=== PATIENT | male | born 1950 | race Caucasian/White ===

== ENCOUNTER 2016-10-07 12:00 | Day surgery (SDC) | payer OTHER ==
[~2016-10-07] VITALS: Ht 177.8 cm; Wt 126.0 kg
[~2016-10-07 12:00] MED LIST: AMLO5TAB2 PO; ASPI-973 PO; CETI10CA PO; CLOP75TA28 PO; DIPH25CA6 PO; LIP40 PO; LISI-571 PO; LORA10CA9 PO; Lactated Ringer's 1,000 ML IV ONE; METF500T4 PO; MULT-1018 PO; NAPR220C11 PO; NITR0.4T6 SL; OMEG1CAP25 PO; OMEP20TA24 PO; OXYC1TAB24 PO; POTA5TAB2 PO; TAMS0.4C98 PO; TIOP100T PO
[2016-10-07] MEDS ORDERED: fentaNYL-PF 50 mCg/mL 2 mL Inj ONE (12:01)
[2016-10-07] MEDS ORDERED: Propofol 10,000 mCg/mL 20 mL Inj ONE (12:01)
[2016-10-07 12:41] VITALS: BP 117/61; PULSE 69; RESP 16; O2SAT 95
[2016-10-07] MEDS ORDERED: MetoCLOpramide 5 mg/mL 2 mL Inj IVPUSH PRN (13:20)
[2016-10-07] MEDS ORDERED: Ondansetron 2 mg/mL 2 mL Inj IVPUSH PRN (13:20)
[2016-10-07] MEDS ORDERED: Lactated Ringer's 1,000 ML IV SCH (13:20)
--- NOTE | 2016-10-07 13:20 | PCM.HPANE ---
Patient Data Surgeon Admitting Provider: Attending Provider:Keenan Martin MD Primary Care Physician:Tod William MD Other Provider:[facility] Reason for Visit Hx Of Adenomatous Polyp Of Colon Ht/WT & BMI Height (Feet): 5 Height (Inches): 10 Weight (Kilograms): 126 Body Mass Index 39.00 Allergies Coded Allergies: Sulfa (Sulfonamide Antibiotics) (Verified Allergy, Severe, 10/03/16) meperidine (Verified Allergy, Severe, itch, n/v, 10/03/16) tetanus toxoid, adsorbed (Verified Allergy, Severe, 10/03/16) ketorolac (Verified Adverse Reaction, Severe, PARANOIA, 10/03/16) Becomes Paranoid Beta-Blockers (Beta-Adrenergic Bloc (Verified Adverse Reaction, Intermediate, DEPRESSION/FATIGUE, 10/03/16) simvastatin (Verified Adverse Reaction, Intermediate, MEMORY LOSS, LETHARGY, 10/03/16) Past Anesthesia History Anesthesia History: Denies:: Abnormal Airway, Anesthesia Reactions, Difficult Intubation, Fam Anesthesia Reaction, Fam Malignant Hypertherm, Malignant Hyperthermia Diabetes History Hx Diabetes?: Yes Type of Diabetes: Type II Glycemic Control: Oral Medication Current Bedside Blood Glucose: 121 MRSA MRSA: No Medications Blood Thinner: Aspirin, Plavix Last Dose Blood Thinner: Sep 30, 2016 Home Meds Incl Beta Donte: No Reported Medications Cetirizine HCl (Zyrtec)10 Mg Rcwgsui52 Mg PO HS #30 CAPSULE Ref 0 10/03/16 Tiopronin (Thiola)100 Mg Vwdfvm042 Mg PO TID 10/03/16 Omeprazole Magnesium (Prilosec Otc)20 Mg Tablet.dr20 Mg PO DAILY #1 PKG Ref 0 10/03/16 Potassium Citrate ER 5 Meq Tablet2 Tablet PO TID Ref 0 TAKE WITH FOOD 10/03/16 oxyCODONE-Acetaminophen 5-325 mg 1 Each Tablet1 Tab PO Q6H PRN For Pain Ref 0 10/03/16 Riparius-3 Fatty Acids/Fish Oil (Riparius 3 Fish Oil Softgel)1 Each Capsule.dr1 Each PO DAILY 10/03/16 Nitroglycerin SL 0.4 Mg Tab.subl0.4 Mg SL 10/03/16 Multivitamin (Multi Vitamin Daily)1 Each Tablet1 Each PO DAILY 30 Days Ref 0 10/03/16 Metformin 500 Mg Tablet1,000 Mg PO BID Ref 0 10/03/16 Loratadine 10 Mg Jummsgn97 Mg PO DAILY 10/03/16 Lisinopril 5 Mg Tablet5 Mg PO DAILY #30 TABLET Ref 0 10/03/16 Tamsulosin (Flomax)0.4 Mg Capsule0.4 Mg PO DAILY Ref 0 10/03/16 Clopidogrel 75 Mg Uenczw66 Mg PO DAILY Ref 0 10/03/16 diphenhydrAMINE HCl (Benadryl)25 Mg Vvnpcth66 Mg PO Q4 PRN For Itching Ref 0 10/03/16 Atorvastatin (Lipitor)40 Mg Wkaiuz30 Mg PO DAILY Ref 0 10/03/16 Aspirin 81 Mg Trtgcs83 Mg PO DAILY Ref 0 10/03/16 Amlodipine 5 Mg Tablet5 Mg PO DAILY Ref 0 10/03/16 Naproxen Sodium (Aleve)220 Mg Elyxdva340 Mg PO BID 10/03/16 Discontinued Reported Medications Tamsulosin (Flomax)0.4 Mg Capsule0.4 Mg PO HS Ref 0 10/19/15 Metformin 500 Mg Tablet1,000 Mg PO BID Ref 0 10/19/15 Famotidine (Pepcid)20 Mg Jaxsyz55 Mg PO DAILY PRN For Dyspepsia or Heartburn 04/10/15 Atorvastatin Calcium 40 Mg Bjqprf75 Mg PO DAILY Ref 0 04/10/15 Amlodipine 5 Mg Tablet5 Mg PO DAILY Ref 0 04/10/15 Cholecalciferol (Vitamin D3) (Vitamin D3)3,000 Unit Tablet4,000 Unit PO DAILY 06/08/14 Aspirin (Aspir 81)81 Mg Tablet.dr81 Mg PO DAILY Ref 0 06/08/14 [vitaminB 12] No Conflict Check1 Tab SL DAILY 06/08/14 Phenazopyridine HCl (Azo-Tabs)95 Mg Bvnyac64 Mg PO PRN For Pain 06/08/14 Nitroglycerin SL (Nitrostat)0.4 Mg Tab.subl0.4 Mg SL Q5MIN PRN For Chest Pain # 1 BOTTLE 06/08/14 Multivitamin (Multi Vitamin Daily)1 Each Tablet1 Each PO DAILY 30 Days Ref 0 06/08/14 Discontinued Scripts oxyCODONE-Acetaminophen 5-325 mg 1 Each Tablet1 Tab PO Q6H PRN For Pain #20 TABLET Prov:Rukhsana Londono MD 10/18/15 Ondansetron ODT (Zofran ODT)8 Mg Tablet8 Mg PO Q6H PRN For Nausea #30 TABLET Prov:Rukhsana Londono MD 10/18/15 Clopidogrel Bisulfate (Plavix)75 Mg Yuwxff56 Mg PO DAILY 30 Days Ref 0 Prov:Brennan Elam MD 04/13/15 History History of ENT Problems?: Yes HEENT History: Positive for:: 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) Sinus Problem (SINUS DRAINAGE) Denies:: Abnormal Airway Cataracts Difficult Intubation Dysphagia Denture Type: None Teeth Condition: Within Normal Limits Hx of Heart Problems?: Yes Cardiovascular History: Positive for:: Cardiac Surgery (CABGx2 2001, 2006, multiple stents placed) Chest Pain Edema Hypertension Irregular Heartbeat (Palpitations occasionally) Denies:: AICD Atrial Fibrillation Heart Murmur Pacemaker Thrombophlebitis Valvular Heart Disease Hx of Respiratory Problem?: Yes Respiratory History: Positive for:: Dyspnea (RT cardiac, with activity) Use of C-PAP Machine Denies:: Asthma COPD Chest Surgery Emphysema Hemoptysis Oxygen Administration Pneumonia Tuberculosis Hx Neurologic Problems?: No Neurological History: Denies:: Alzheimer's Disease CVA Dementia Dizziness Headaches Parkinson's Disease Seizures Hx of GI Problems?: Yes Hx of Problems?: Yes Genitourinary History: Positive for:: Kidney Stones (frequent stones) Urinary Tract Infection Denies:: HX of Hemodialysis HX of Peritoneal Dialysis: No Male Hx: Positive for:: Prostate Problems (BPH a little bite) Denies:: Scrotal Mass Testicular Surgery Skin History: Denies:: History Skin Disorders? Pressure Ulcers Hx Musculoskeletal Problems?: Yes Musculoskeletal History: Positive for:: Back Injury (sometimes) Denies:: Fibromyalgia Joint Replacement Musculoskeletal Trauma Hx of Psycho/Social Problems?: No Psycho Social History: Denies:: Anxiety Bipolar Disorder Hx Depression Suicide Attempt Hx Surgeries?: Yes (Kindey stone removal several times, CABG and stents) Hx Any Other Health Problems?: Yes Other History: Positive for:: Endocrine Disease Hospitalization Denies:: Cancer Thyroid Disease History Blood Transfusions: Denies:: Blood Transfuse Reaction Blood Transfusions Hx Diabetes: YesBedside Blood Glucose: 121 Hx Alcohol Use: NoHx Substance Use: No Smoking Status: Never Smoker Have You Smoked inLast 12 mo: No Stop/Bang Treated for Sleep Apnea?: Yes Do You Have a CPAP Machine?: Yes BAUDILIO Category 2: Yes Risk Assessment Category Category 1A: Patient has history of documented sleep apnea, and HAS NOT received any narcotic, sedative or anesthesia administration during this stay. Category 1B: Patient has history of documented sleep apnea, and HAS received any narcotic , sedative or anesthesia administration during this stay Category 2: Patient has SUSPECTED Obstructive Sleep Apnea, and HAS received any narcotic , sedative or anesthesia administration during this stay. Category 3: Patient has SUSPECTED Obstructive Sleep Apnea and HAS NOT received narcotic, sedative or anesthesia administration during this stay. Category 4: Outpatient in Procedural Areas with known sleep apnea or who screen positive for High Risk via the STOP/BANG questionnaire. Exam Exam Vital Signs Vital Signs Date Time Temp Pulse Resp B/P Pulse Ox O2 Delivery O2 Flow Rate FiO2 10/07/16 12:41 36.8 69 16 117/61 95 Room Air General Appearance: Alert HEENT/AIRWAY: MP 2, Neck Movement (FROM, 3 FB) Lungs: Clear to Auscultation Heart: Regular Rate/Rhythm Meds/Labs/Diagnostics Bedside Blood Glucose: 121 Plan Impression Patient chart reviewed, patient interviewed and anesthestic plan with risks, benefits, and alternatives discussed, and informed consent obtained. NPO per Anesth. Guidelines: Yes ASA Physical Status: ASA3 Severe Disease Anesthetic Plan: MAC Bene/Risks/Altern/Consents: Yes HP Complete Prior to Induction: Yes Christiano Key MD Oct 07, 2016 12:51
[2016-10-07 13:42] VITALS: BP 139/78; PULSE 65; RESP 16; O2SAT 99
--- NOTE | 2016-10-07 13:51 | PCM.ANEP1 ---
Post Anesthesia PACU Phase 1 Assessment Vital Signs Vital Signs Date Time Temp Pulse Resp B/P Pulse Ox O2 Delivery O2 Flow Rate FiO2 10/07/16 13:42 65 16 139/78 99 Room Air 10/07/16 12:41 36.8 69 16 117/61 95 Room Air Anesthetic Administered: MAC Level of Alertness: Awake, talking SO's with Equal Strength: Yes Pain: Yes Nausea or Vomiting: No CV Function & Hydration Stable: Yes Airway Device: Oxygen Delivery: Room Air Lungs: Clear to Auscultation Dermatome Level: Full Sensation PACU Phase 2 Assessment Complications: No Follow up Care: N/A Patient Instructions Provided: N/A Christiano Key MD Oct 07, 2016 13:51
[2016-10-07 13:52] VITALS: BP 130/77; PULSE 67; RESP 16; O2SAT 98
--- NOTE | 2016-10-07 14:19 | ENDO ---
[address] [address] ENDOSCOPY PROCEDURE PATIENT: VIOLET DAMON : 1950 MR#: [id number] ADMIT: 10/07/2016 JOB ID: [id number] DATE: 10/07/2016 TYPE OF OPERATION: Colonoscopy with biopsy. PREOPERATIVE DIAGNOSIS(ES): History of adenoma polyps. POSTOPERATIVE DIAGNOSIS(ES): A 4 mm sigmoid polyp removed by cold biopsy forceps. ANESTHESIA: Monitored anesthesia care. COMPLICATIONS: None. BLOOD LOSS: Minimal. DESCRIPTION OF PROCEDURE: After risks and benefits were explained to the patient, informed consent was obtained. After anesthesia administered, colonoscope was then inserted from the rectum to the terminal ileum and mucosa carefully examined. Prep of the patient was excellent. After procedure was done, the scope was withdrawn and the procedure terminated. FINDINGS: Upon inspection of the anus, no masses, hemorrhoids, ulcers, or fissures were seen. Throughout the entire examination, a 4 mm sigmoid polyp removed by cold biopsy forceps. Retroflexion was normal. IMPRESSION: A 4 mm sigmoid polyp removed by cold biopsy forceps. RECOMMENDATIONS: 1. Await pathology results. 2. Repeat colonoscopy in five years.
--- NOTE | 2016-10-09 16:00 | PATH ---
SURGICAL PATHOLOGY Attending Physician:Keenan Martin MD CASE STATUS: Signed Out PATIENT NAME: VIOLET DAMON PID: [id number] : 1950 DATE COLLECTED:10/07/2016 00:00 SPECIMEN: Colon, Polyp CLINICAL HISTORY: 1). SIGMOID POLYP X 1 FINAL DIAGNOSIS: 1.SIGMOID COLON POLYP, BIOPSY: TUBULAR ADENOMA. ICD10 D12.5 GROSS DESCRIPTION: The specimen is received in one formalin filled container labeled with the patient's name, sublabeled "sigmoid polyp" and consists of 2 portions of tissue which aggregate to 0.4 x 0.2 x 0.2 CM. The specimen is entirely submitted in one cassette. 10/08/2016DC MICRO DESCRIPTION: See diagnosis. ICD-9 CODES: CPT CODES: 1: 18280 Electronically Signed Out Paras Dee MD, Ph.D. [facility] Pathology [facility] [address], [place] [address] Technical component performed at [facility] [address], [place], [address]
== END 2016-10-07 23:59 | disposition home or self-care (01) ==
LOC: END 12:00
PROVIDERS: ATTEND Internal Medicine Gastroenterology
DX: Z12.11 Encounter for screening for malignant neoplasm of colon (principal); D12.5 Benign neoplasm of sigmoid colon; H91.90 Unspecified hearing loss, unspecified ear; I25.10 Atherosclerotic heart disease of native coronary artery without angina pectoris; I10 Essential (primary) hypertension; N40.0 Benign prostatic hyperplasia without lower urinary tract symptoms; Z95.1 Presence of aortocoronary bypass graft; Z98.61 Coronary angioplasty status; Z86.010 Personal history of colon polyps; Z79.82 Long term (current) use of aspirin; Z79.899 Other long term (current) drug therapy
CPT/HCPCS: 45380; J2250; J2704; J3010; J7120